=== PATIENT | male | born 1955 | race Hispanic/Latino ===

== ENCOUNTER 2022-04-29 07:13 | Day surgery (SDC) | payer OTHER ==
[2022-04-27 14:35] LABS: BASOPHILS % (AUTO) 0.3 % (0.0-5.0); EOSINOPHILS % (AUTO) 2.5 % (0.0-8.0); HEMATOCRIT 41.4 % (42-54); LYMPHOCYTES % (AUTO) 33.6 % (21.0-51.0); MEAN CORPUSCULAR HEMOGLOBIN 31.2 pg (27.0-33.0); MEAN CORPUSCULAR HGB CONC 34.5 g/dL (32.0-36.0); MEAN CORPUSCULAR VOLUME 90.4 fL (79-99); MONOCYTES % (AUTO) 7.2 % (3.0-13.0); NEUTROPHILS % (AUTO) 56.1 % (40.0-77.0); PLATELET COUNT (AUTO) 236 K/uL (130-400); RED BLOOD CELL COUNT(AUTO) 4.58 MIL/uL (4.50-6.20); RED CELL DISTRIBUTION WIDTH 12.9 % (11.0-15.5)
[2022-04-27 14:44] LABS: CREATININE 0.8 mg/dL (0.5-1.5); POTASSIUM 4.7 mmol/L (3.5-5.1)
[2022-04-28 11:59] VITALS: BP 160/76
[~2022-04-29] VITALS: Ht 172.7 cm; Wt 78.6 kg
[2022-04-29] VITALS (14 sets, daily range): BP systolic 130–163; BP diastolic 71–89
[~2022-04-29 07:13] MED LIST: CEFTRIAXONE 1G VIAL IVP SCH; LISI2.5T13 PO; METF-445 PO; TAMS-1 PO
[2022-04-29] MEDS ORDERED: 0.9%NACL 1000ML 1,000 ML IV ONE (07:29)
[2022-04-29] MEDS ORDERED: FINA5TAB41 PO (08:14)
[2022-04-29] MEDS ORDERED: ATOR10 PO (08:14)
[2022-04-29] MEDS ORDERED: LORA10TA7 PO (08:14)
[2022-04-29] MEDS ORDERED: OPIUM/BELLADONNA ALKALOIDS 1 EACH SUPP.RECT RC ONE (10:05)
[2022-04-29] MEDS ORDERED: MIDAZOLAM HCL 1 MG/ML 2ML VIAL ONE (10:23)
[2022-04-29] MEDS ORDERED: PROPOFOL 10 MG/ML 20ML VIAL IV ONE (10:23)
[2022-04-29] MEDS ORDERED: ROCURONIUM 10MG/1ML SYR 10 MG/ML ML ONE (10:23)
[2022-04-29] MEDS ORDERED: FENTANYL CITRATE PF 50 MCG/1 ML 2ML VIAL ONE (10:23)
[2022-04-29] MEDS ORDERED: ONDANSETRON 4MG INJ ONE (11:43)
[2022-04-29] MEDS ORDERED: DEXAMETHASONE SOD PHOSPHATE 10MG/ML 1ML VIAL ONE (11:43)
[2022-04-29] MEDS ORDERED: MEPERIDINE-PF 25 MG/ML SYG ONE ×2 (12:11→12:20)
[2022-04-29] MEDS ORDERED: PHENAZOPYRIDINE HCL 200 MG TABLET ONE (12:39)
== END 2022-04-29 13:55 | disposition home or self-care (01) ==
LOC: DAH 07:13
PROVIDERS: ATTEND Urology
DX: N40.1 Benign prostatic hyperplasia with lower urinary tract symptoms (principal); R33.8 Other retention of urine; R35.1 Nocturia; E11.9 Type 2 diabetes mellitus without complications; K21.9 Gastro-esophageal reflux disease without esophagitis; I10 Essential (primary) hypertension; F17.200 Nicotine dependence, unspecified, uncomplicated; Z79.01 Long term (current) use of anticoagulants; Z79.899 Other long term (current) drug therapy; Z98.890 Other specified postprocedural states; Z98.49 Cataract extraction status, unspecified eye
CPT/HCPCS: 80048; 85025; 87426; 36415; 93005; 52648; 82948 ×2; A6260; A4663; A4354; A4340; J3010; J1100; J7030; J0696; J2250; J2704; J2405; J2175 ×2; A4358 ×2; A4215; A4223; A4335; A6402; A4222; A4221; A5113 ×2; A4600